=== PATIENT | female | born 1935 | race Caucasian/White ===

== ENCOUNTER 2016-08-29 13:07 | Emergency (ER) | payer OTHER, BC ==
[2016-08-29 13:16] VITALS: TEMP 97.5; BMI 42.4
--- NOTE | 2016-08-29 13:44 | PDOC ---
History of Present Illness - History of Present Illness Initial Comments: 08/29/16 14:41 The patient is an 81 year old female with significant past medical history of hypertension, diabetes, and a dropped bladder who presents to the emergency department with dysuria and abdominal pain for 2 weeks. Her pain has been intermittent for the last few weeks. She states that her pain is similar to UTIs she has had in the past. She denies any hematuria or frequency. The patient denies any associated nausea or vomiting but does have some associated low back pain. The patient spoke to her PMD this morning and he referred her to the ED. She denies any fevers or chills at home. The patient denies any sick contacts or recent travels. PMD: Dr. Sheffield <Sagrario Marley - Last Filed: 08/29/16 14:41> - General History Source: Patient, Family, Old Records Exam Limitations: No Limitations <Mey Landis - Last Filed: 08/29/16 16:00> - General Chief Complaint: Urinary Problem Stated Complaint: BACK PAIN, LEGS PAIN (PCP SENT) Time Seen by Provider: 08/29/16 13:43 Past History <Sagrario Marley - Last Filed: 08/29/16 14:41> - Past Medical History Diabetes: Yes HTN: Yes - Psycho/Social/Smoking Cessation Hx Anxiety: No Suicidal Ideation: No Smoking History: Never smoked Have you smoked in the past 12 months: No Information on smoking cessation initiated: No Hx Alcohol Use: No Drug/Substance Use Hx: No Substance Use Type: None <Mey Landis - Last Filed: 08/29/16 16:00> - Past Medical History Allergies/Adverse Reactions: Allergies Allergy/AdvReac Type Severity Reaction Status Date / Time levofloxacin [From Levaquin] Allergy Unknown Verified 08/29/16 14:31 doxycycline Allergy Verified 08/29/16 13:16 tetracycline Allergy Verified 08/29/16 13:16 Home Medications: Ambulatory Orders Aspirin [ASA -] 81 mg PO DAILY 08/29/16 Cholecalciferol (Vitamin D3) [Vitamin D3 -] 2,000 unit PO DAILY 08/29/16 Furosemide 20 mg PO DAILY 08/29/16 Insulin (Levemir) [Levemir Flexpen -] 22 units SQ HS 08/29/16 Insulin (Levemir) [Levemir Flexpen -] 50 units SQ DAILY 08/29/16 Insulin NPH Human Isophane [Humulin N] 15 unit SQ TID 08/29/16 Metoprolol Tartrate 25 mg PO DAILY 08/29/16 Nitrofurantoin Macrocrystal [Macrodantin -] 100 mg PO ONCE #14 capsule 08/29/16 Nitrofurantoin Monohyd/M-Cryst [Macrobid -] 100 mg PO BID #14 capsule 08/29/16 Pravastatin Sodium 20 mg PO HS 08/29/16 Review of Systems - Review of Systems Able to Perform ROS?: Yes Comments:: 08/29/16 14:41 GENERAL/CONSTITUTIONAL: No fever or chills. No weakness. HEAD, EYES, EARS, NOSE AND THROAT: No change in vision. No ear pain or discharge. No sore throat. CARDIOVASCULAR: No chest pain or shortness of breath. RESPIRATORY: No cough, wheezing, or hemoptysis. GASTROINTESTINAL: No nausea, vomiting, diarrhea or constipation. GENITOURINARY: +Dysuria. No frequency, hematuria, or change in urination. MUSCULOSKELETAL: +Back pain. No joint or muscle swelling or pain. No neck pain. SKIN: No rash NEUROLOGIC: No headache, vertigo, loss of consciousness, or change in strength/ sensation. ENDOCRINE: No increased thirst. No abnormal weight change. HEMATOLOGIC/LYMPHATIC: No anemia, easy bleeding, or history of blood clots. ALLERGIC/IMMUNOLOGIC: No hives or skin allergy. <Sagrario Marley - Last Filed: 08/29/16 14:41> *Physical Exam - Vital Signs Last Vital Signs Temp Pulse Resp BP Pulse Ox 97.5 F L 73 18 180/70 100 08/29/16 13:12 08/29/16 13:12 08/29/16 13:12 08/29/16 13:12 08/29/16 13:12 - Physical Exam Comments: 08/29/16 14:41 GENERAL: Awake, alert, and fully oriented, in no acute distress HEAD: No signs of trauma EYES: PERRLA, EOMI, sclera anicteric, conjunctiva clear ENT: Auricles normal inspection, hearing grossly normal, nares patent, oropharynx clear without exudates. Moist mucosa NECK: Normal ROM, supple, no lymphadenopathy, JVD, or masses LUNGS: Breath sounds equal, clear to auscultation bilaterally. No wheezes, and no crackles HEART: Regular rate and rhythm, normal S1 and S2, no murmurs, rubs or gallops ABDOMEN: +Obese abdomen. +Mild suprapubic tenderness, no guarding or rebound. Soft, normoactive bowel sounds. No masses. EXTREMITIES: Normal range of motion, no edema. No clubbing or cyanosis. No cords, erythema, or tenderness NEUROLOGICAL: Cranial nerves II through XII grossly intact. Normal speech, normal gait SKIN: Warm, Dry, normal turgor, no rashes or lesions noted. <Sagrario Marley - Last Filed: 08/29/16 14:41> - Vital Signs Last Vital Signs Temp Pulse Resp BP Pulse Ox 97.5 F L 73 18 180/70 100 08/29/16 13:12 08/29/16 13:12 08/29/16 13:12 08/29/16 13:12 08/29/16 13:12 <Mey Landis - Last Filed: 08/29/16 16:00> ED Treatment Course - LABORATORY CBC & Chemistry Diagram: 08/29/16 14:10 08/29/16 14:10 - Medications Given in the ED: ED Medications Discontinued Medications Generic Name Dose Route Start Last Admin Trade Name Freq PRN Reason Stop Dose Admin Acetaminophen 1,000 mg 08/29/16 13:53 08/29/16 14:04 Tylenol - PO 08/29/16 13:54 1,000 mg ONCE ONE Administration <Sagrario Marley - Last Filed: 08/29/16 14:41> - LABORATORY CBC & Chemistry Diagram: 08/29/16 14:10 08/29/16 14:10 <Mey Landis - Last Filed: 08/29/16 16:00> Medical Decision Making - Medical Decision Making 08/29/16 14:39 81-year-old female with history of hypothyroid disease, hypertension, diabetes, sciatica and a "dropped bladder" presents the emergency department with 2 week history of intermittent lower back pain, suprapubic pain and dysuria. Differential diagnosis includes but is not limited to: Urinary tract infection, yeast infection, sciatica, pyelonephritis. Plan: 1. Labs 2. Urine 3. Pain management 4. Observe and reevaluate <Mey Landis - Last Filed: 08/29/16 16:00> *DC/Admit/Observation/Transfer - Attestations Scribe Attestion: 08/29/16 14:20 Documentation prepared by Sagrario Marley, acting as infertility medical assistant for Mey Landis MD. <Sagrario Marley - Last Filed: 08/29/16 14:41> - Discharge Dispostion Admit: No - Attestations Physician Attestion: 08/29/16 14:38 I, Dr. Mey Landis, attest that the scribes documentation that appears above has been prepared under my direction and personally reviewed by me in its entirety. I confirmed that the note above accurately reflects all work, treatment, procedures, and medical decision-making performed by me. <Mey Landis - Last Filed: 08/29/16 16:00> Diagnosis at time of Disposition: Suprapubic pain, Urinary tract infection - Discharge Dispostion Disposition: HOME Condition at time of disposition: Stable - Prescriptions Prescriptions: Nitrofurantoin Monohyd/M-Cryst [Macrobid -] 100 mg PO BID #14 capsule Nitrofurantoin Macrocrystal [Macrodantin -] 100 mg PO ONCE #14 capsule - Referrals Referrals: Ever Sheffield MD [Primary Care Provider] - - Patient Instructions Printed Discharge Instructions: DI for Urinary Tract Infection (UTI) Additional Instructions: You have been prescribed Macrobid for a urinary tract infection. Take one tablet twice daily for [address] Kidd will call you tomorrow to follow- up with urine culture. Return to the ED if symptoms persist, worsen or new symptoms arise.
[2016-08-29] MEDS ORDERED: ACETAMINOPHEN 500 MG TABLET (FP) PO ONE (13:53)
[2016-08-29] MEDS ORDERED: ACETAMINOPHEN 325 MG TABLET (FP) ONE (14:01)
[2016-08-29 14:33] LABS: BASOPHIL 0.8 % (0-2.0); EOSINOPHIL 2.6 % (0-4.5); MCH 20.9 pg (25.7-33.7); MCHC 31.7 g/dl (32.0-36.0); MEAN CELL VOLUME 65.8 fl (80-96); MEAN PLT VOLUME 8.3 fl (7.5-11.1); NEUTROPHILS 58.1 % (42.8-82.8); PLATELET COUNT 186 K/MM3 (134-434); RDW 16.5 % (11.6-15.6); WHITE BLOOD COUNT 6.9 K/mm3 (4.0-10.0)
[2016-08-29 14:40] LABS: CALCIUM 8.9 mg/dL (8.5-10.1); CREATININE 0.7 mg/dL (0.55-1.02); MAGNESIUM 2.2 mg/dL (1.8-2.4)
[2016-08-29 14:58] LABS: URINE APPEARANCE CLEAR; URINE BILIRUBIN NEGATIVE (NEGATIVE); URINE COLOR COLORLESS; URINE GLUCOSE (UA) NEGATIVE (NEGATIVE); URINE KETONE NEGATIVE (NEGATIVE); URINE LEUK ESTERASE NEGATIVE (NEGATIVE); URINE NITRITE NEGATIVE (NEGATIVE); URINE PROTEIN NEGATIVE (NEGATIVE); URINE UROBILINOGEN NEGATIVE E.U./dl (0.2-1.0)
[2016-08-29 15:03] LABS: URINE BLOOD 1+ (NEGATIVE)
[2016-08-29 15:06] LABS: URINE RBC 2 /hpf (0-3)
[2016-08-29] MEDS ORDERED: IBUPROFEN 400 MG TABLET (FP) PO ONE ×2 (15:20→15:34)
[2016-08-29] MEDS ORDERED: NITROFURANTOIN MACROCRYSTAL 50 MG CAPSULE (FP) PO SCH (15:30)
[2016-08-29] MEDS ORDERED: NITROFURANTOIN MACROCRYSTAL 50 MG CAPSULE (FP) ONE (15:34)
[2016-08-29 17:07] VITALS: BP 164/55; PULSE 70
== END 2016-08-29 17:08 | disposition home or self-care (01) ==
LOC: JER 13:07
DX: N39.0 Urinary tract infection, site not specified (principal); I10 Essential (primary) hypertension; E11.9 Type 2 diabetes mellitus without complications; Z79.4 Long term (current) use of insulin; E03.9 Hypothyroidism, unspecified
CPT/HCPCS: 36415; 80048; 81003; 81015; 83735; 84100; 85025; 87086; 99283-25